=== PATIENT | female | born 1940 | race Asian ===

== ENCOUNTER 2016-07-15 09:05 | Outpatient (CLI) | payer MEDICARE, OTHER | END 2016-07-15 09:06 | disposition home or self-care (01) | DX: C50.912 Malignant neoplasm of unspecified site of left female breast (principal); M50.30 Other cervical disc degeneration, unspecified cervical region ==

== ENCOUNTER 2016-12-05 13:25 | Outpatient (CLI) | payer MEDICARE, OTHER ==
--- NOTE | 2016-12-05 17:10 | XRAY Report ---
BILATERAL HIPS AND PELVIS: 12/05/2016 CLINICAL INDICATION: Bilateral hip pain, osteoarthritis. FINDINGS: Frontal view of the hips and pelvis and bilateral frogleg lateral views of the hips demons trate mild bilateral hip osteoarthritis. There is no evidence of acute fracture or dislocation. Deg enerative changes are seen in the lower lumbar spine. IMPRESSION: MILD BILATERAL HIP OSTEOARTHRITIS. JOB #: [id number] EXT JOB #:[id number]
--- NOTE | 2016-12-05 17:10 | XRAY Report ---
THREE VIEW BILATERAL KNEES: 12/05/2016 CLINICAL INDICATION: Pain, osteoarthritis. AP, lateral, sunrise views of the bilateral knees demonstrate severe bilateral osteoarthritis. There is no evidence of acute fracture. No effusion is present on either side. IMPRESSION: SEVERE BILATERAL OSTEOARTHRITIS. JOB #: [id number] EXT JOB #:[id number]
== END 2016-12-05 13:26 | disposition home or self-care (01) ==
LOC: DI 13:25
PROVIDERS: ATTEND Family Medicine
DX: M16.0 Bilateral primary osteoarthritis of hip (principal); M17.0 Bilateral primary osteoarthritis of knee
CPT/HCPCS: 73521

== ENCOUNTER 2017-11-20 13:39 | Outpatient (CLI) | END 2017-11-20 13:40 | disposition home or self-care (01) ==

== ENCOUNTER 2020-08-05 20:56 | Emergency (ER) | payer MEDICARE, OTHER ==
[2020-08-05] MEDS ORDERED: KETOROLAC 60 MG/2 ML VIAL IM STA (21:49)
[2020-08-05] MEDS ORDERED: CHERRY SYRUP 10 ML UDC PO ONE (21:49)
[2020-08-05] MEDS ORDERED: DEXAMETHASONE 10 MG/ML VIAL PO STA (21:49)
--- NOTE | 2020-08-05 21:51 | ED Physician Documentation ---
PD HPI Fall - Stated complaint Stated Complaint: R SIDE PX/GLF - Chief complaint Chief Complaint: General - History obtained from History obtained from: Patient - History of Present Illness Mechanism of injury: Tripped Fall distance: Standing position Where injury occurred: Home Timing - onset: How many days ago (2) Injury(ies) location: Chest, Right Lower Extremity Quality of pain: Pain Associated symptoms: Other (pain to the chest wall bruising to the right knee). No: LOC, AMS, Amnesia, Seizures, Ear drainage, Nasal drainage, Neck pain, Weakness, Paresthesias, Dyspnea, Nausea / vomiting, Hematemesis, Abdominal distension Symptoms improve with: Rest Worsens with: Movement, Palpation Contributing factors: No: Anticoagulated Similar symptoms before: Has not had sx before Recently seen: Not recently seen - Additional information Additional information: Previously well 79-year-old female with a distant history of breast cancer and bilateral mastectomy was in her home 2 days ago when she tripped over the edge of a carpet that was sticking up. She fell and her cane jabbed her in the right chest wall. She hurt her right knee and she is able to bear weight on this and move it without difficulty. She has been using some lidocaine patches to her chest wall and despite this she has pain of 6-7 on the chest wall. 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 : None HEENT: Chronic vision loss, Macular degeneration, Chronic hearing loss Psych: None Musculoskeletal: None Derm: None - Past Surgical History Past Surgical History: Yes /MACHINE LEAD BURNER: Mastectomy - Present Medications Home Medications: Ambulatory Orders Medication Instructions Recorded Confirmed Anastrozole 1 mg DAILY 10/10/12 08/05/20 Gabapentin 300 mg PO BID 10/10/12 08/05/20 Lidocaine [Lidoderm] 700 mg TP DAILY PRN 10/10/12 08/05/20 Omeprazole [Prilosec] 20 mg PO DAILY 10/10/12 08/05/20 Simvastatin 20 mg PO DAILY 10/10/12 08/05/20 Amlodipine Besylate [Norvasc] 2.5 mg PO DAILY 08/05/20 08/05/20 traMADol [Ultram] 50 - 100 mg PO Q6H PRN #20 tablet 08/06/20 - Allergies Allergies/Adverse Reactions: Allergies Allergy/AdvReac Type Severity Reaction Status Date / Time No Known Drug Allergies Allergy Verified 08/05/20 21:14 - Social History Does the pt smoke?: No Smoking Status: Never smoker Does the pt drink ETOH?: No Does the pt have substance abuse?: No - Immunizations Immunizations are current?: Yes - POLST Patient has POLST: No PD ED PE NORMAL - Vitals Vital signs reviewed: Yes (hypertensive mild) - General General: Alert and oriented X 3, No acute distress, Well developed/nourished - HEENT HEENT: Atraumatic, PERRL, EOMI - Neck Neck: Supple, no meningeal sign, No bony TTP - Cardiac Cardiac: RRR, No murmur - Respiratory Respiratory: No respiratory distress, Clear bilaterally, Other (chest wall tenderness to the right chest wall laterally. No crepitance or clicking) - Abdomen Abdomen: Soft, Non tender - Back Back: No CVA TTP, No spinal TTP - Derm Derm: Normal color, Warm and dry, No rash - Extremities Extremities: No deformity, No edema, Other (exam of the right knee with stable ligaments no effusion and fair ROM.) - Neuro Neuro: Alert and oriented X 3, resolution analyst 2-12 intact, No motor deficit, No sensory deficit, Normal speech Eye Opening: Spontaneous Motor: Obeys Commands Verbal: Oriented GCS Score: 15 - Psych Psych: Normal mood, Normal affect Results - Vitals Vitals: Vital Signs - 24 hr 08/05/20 08/05/20 08/06/20 21:11 21:13 00:57 Temperature 36.5 C 36.5 C 36.8 C Heart Rate 93 92 83 Respiratory 16 16 16 Rate Blood Pressure 140/79 H 144/89 H 151/82 H O2 Saturation 96 100 94 08/06/20 01:02 Temperature 36.8 C Heart Rate 81 Respiratory 16 Rate Blood Pressure 131/89 H O2 Saturation 96 Oxygen O2 Source Room air - Rads (name of study) knee Radiology: Prelim report reviewed (Impression: Stable appearing right knee with tricompartmental moderate to severe hypertrophic osteoarthritis. No acute fracture or effusion.), EMP read indepedently, See rad report chest with ribs Radiology: Prelim report reviewed (Impression: No acute rib fracture. Mild compression fracture of T8 and T11, indeterminate chronicity.), EMP read indepedently, See rad report PD MEDICAL DECISION MAKING - ED course Complexity details: reviewed results, re-evaluated patient, considered differential, d/w patient ED course: 79-year-old female who is had a fall in her home and contused her chest wall with her cane has a lot of pain to her chest wall and this is the reason for her visit this evening. She is administered some Toradol and dexamethasone here in the emergency department has improvement in her pain and we will prescribe some tramadol for her for pain control. Her knee appears to have tricompartmental osteoarthritis and no new findings. She is not particularly worried about her knee as she is able to ambulate on it without much difficulty. Departure - Departure Disposition: 01 Home, Self Care Clinical Impression: Chest wall contusion Qualifiers: Encounter type: initial encounter Laterality: right Qualified Code(s): S20.211A - Contusion of right front wall of thorax, initial encounter Knee contusion Qualifiers: Encounter type: initial encounter Laterality: right Qualified Code(s): S80.01XA - Contusion of right knee, initial encounter Condition: Stable Instructions: ED Contusion Lower Ext, ED Contusion Vs Minor Fx Rib Follow-Up: Jose Manuel Donovan MD [Primary Care Provider] - Prescriptions: traMADol [Ultram] 50 - 100 mg PO Q6H PRN #20 tablet PRN Reason: Pain Discharge Date/Time: 08/06/20 01:03
[2020-08-06 01:03] VITALS: BP 131/89
--- NOTE | 2020-08-06 09:04 | XRAY Report ---
PROCEDURE: Ribs w/PA Chest RT INDICATIONS: chest wall contusion TECHNIQUE: 2 views of the right ribs were acquired, along with a single view chest. COMPARISON: Chest radiograph dated 07/15/2016 FINDINGS: Surgical changes and devices: Surgical clips are noted in left axilla. Bones and chest wall: No fractures or dislocations. No suspicious bony lesions. Overlying soft tis sues appear unremarkable. Chronic appearing mild endplate compression deformity at T8 and T11 levels are seen, unchanged from 2017 study. Lungs and pleura: No pleural effusions or pneumothorax. Lungs appear clear. Mediastinum: Mediastinal contours appear normal. Heart size is normal. IMPRESSION: No obvious displaced right rib fracture is seen. No acute cardiopulmonary pathology. Old mild superior endplate compression deformities at T8 and T11 levels unchanged from previous study . No discrepancies from preliminary reading. Reviewed by: Moses Lynne MD on 08/06/2020 9:03 AM PST Approved by: Moses Lynne MD on 08/06/2020 9:03 AM PST Station ID: [id number]
--- NOTE | 2020-08-06 09:12 | XRAY Report ---
PROCEDURE: Knee 4 View RT INDICATIONS: fall contusion TECHNIQUE: 4 views of the right knee(s) were acquired. COMPARISON: 12/05/2016. FINDINGS: Bones: Moderate to severe tricompartmental osteoarthritis most prominent in lateral femoral tibial c ompartment is seen significantly progressed since previous study in 2017. Subtle lucency involving we ightbearing portion of lateral femoral condyle with increased sclerotic changes which could represent spontaneous osteonecrosis of knee (SONK). No suspicious bony lesions. Soft tissues: Small suprapatellar joint effusion. Vascular calcifications are noted in posterior righ t knee. IMPRESSION: 1. No definite acute right knee fracture or dislocation. 2. Moderate to severe tricompartmental osteoarthritis more prominent in lateral femoral tibial compar tment. 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 Consider MRI of knee for further evaluation if indicated. 3. Small significant joint effusion. No significant [place] discrepancies from preliminary reading. Reviewed by: Moses Lynne MD on 08/06/2020 9:11 AM PST Approved by: Moses Lynne MD on 08/06/2020 9:11 AM PST Station ID: [id number]
== END 2020-08-06 01:03 | disposition home or self-care (01) ==
LOC: ED 20:56
DX: S20.211A Contusion of right front wall of thorax, initial encounter (principal); S80.01XA Contusion of right knee, initial encounter; W18.09XA Striking against other object with subsequent fall, initial encounter; Y92.009 Unspecified place in unspecified non-institutional (private) residence as the place of occurrence of the external cause; I10 Essential (primary) hypertension; M17.11 Unilateral primary osteoarthritis, right knee
CPT/HCPCS: 71101; 73564; 96372; 99284; A9270; 81001